=== PATIENT | female | born 1990 | race Hispanic/Latino ===

== ENCOUNTER 2017-02-18 10:38 | Day surgery (SDC) | payer OTHER ==
[2017-02-18] VITALS (10 sets, daily range): BP systolic 106–120; BP diastolic 59–75; PULSE 60–83; RESP 9–16; O2SAT 99–100
[~2017-02-18] VITALS: Ht 160 cm; Wt 73.5 kg
[~2017-02-18 10:38] MED LIST: CLOM50TA PO; Iron; Lactated Ringer's 1,000 ML IV SCH; MULT1CAP33 PO
[2017-02-18] MEDS ORDERED: Rocuronium 10 mg/mL 5 mL Inj ONE (10:39)
[2017-02-18] MEDS ORDERED: Succinylcholine Chloride 20 mg/mL 5 mL Inj ONE (10:39)
[2017-02-18] MEDS ORDERED: Dexamethasone 4 mg/mL Inj ONE (10:39)
[2017-02-18] MEDS ORDERED: fentaNYL-PF 50 mCg/mL 2 mL Inj ONE (10:39)
[2017-02-18] MEDS ORDERED: Ondansetron 2 mg/mL 2 mL Inj ONE (10:39)
[2017-02-18] MEDS ORDERED: Neostigmine 1 mg/mL 10 mL Inj ONE (10:39)
[2017-02-18] MEDS ORDERED: Glycopyrrolate 0.2 MG/ML 1mL Inj ONE (10:39)
[2017-02-18] MEDS ORDERED: Propofol 10,000 mCg/mL 20 mL Inj ONE (10:39)
[2017-02-18] MEDS ORDERED: Lactated Ringer's 1,000 ML IV ONE ×2 (11:19→11:29)
--- NOTE | 2017-02-18 11:29 | PCM.HPANE ---
Patient Data Date of Service: Feb 18, 2017 Surgeon Admitting Provider: Attending Provider:Bhavani Bonilla MD Primary Care Physician:Concepcion Vicente MD Other Provider:Ang Ware Anesthesia Reason for Visit Abnormal Uterine Bleeding Ht/WT & BMI Height (Feet): 5 Height (Inches): 3.00 Weight (Kilograms): 73.480 Body Mass Index 28.00 Allergies Coded Allergies: No Known Allergies (Unverified Allergy, Unknown, 02/17/17) Past Anesthesia History Anesthesia History: Positive for:: Fam Anesthesia Reaction (Mother- rapid heart beat), Denies:: Abnormal Airway, Anesthesia Reactions, Difficult Intubation, Fam Malignant Hypertherm, Malignant Hyperthermia Diabetes History Hx Diabetes?: No MRSA MRSA: No Medications Hypertension Medication: No Home Meds Incl Beta Ashely: No Reported Medications Multivitamin (Multivitamins)1 Each Capsule1 Each PO DAILY 02/12/17 [Iron] No Conflict [id number] Daily 02/12/17 Clomiphene Citrate 50 Mg [id number] Mg PO DAILY 02/12/17 History History of ENT Problems?: No HEENT History: Denies:: Abnormal Airway Cataracts Difficult Intubation Dysphagia Glaucoma Hearing Problem Sinus Problem TMJ Denture Type: None Teeth Condition: Within Normal Limits Hx of Heart Problems?: No Cardiovascular History: Denies:: AICD Abdominal Aortic Aneurism Atrial Fibrillation Cardiac Surgery Chest Pain Congestive Heart Failure Coronary Artery Disease Edema Heart Murmur Hypertension Irregular Heartbeat Pacemaker Peripheral Vascular Rheumatic Fever Thrombophlebitis Valvular Heart Disease Hx of Respiratory Problem?: No Respiratory History: Denies:: Asthma COPD Chest Surgery Cough Dyspnea Emphysema Hemoptysis Oxygen Administration Pneumonia Pulmonary Embolism Tuberculosis Use of C-PAP Machine Use of Inhalers / NEBS Hx Neurologic Problems?: Yes Neurological History: Positive for:: Headaches (occasionally) Denies:: Alzheimer's Disease CVA Dementia Dizziness Multiple Sclerosis Parkinson's Disease Peripheral Neuropathy Seizures TIA Hx of GI Problems?: No Gastrointestinal History: Denies:: Cirrhosis Diverticulitis Gall Bladder Disease Gastroesphageal Reflux Gastrointestinal Bleeding Heartburn Hepatitis Hiatal Hernia Liver Disease Rectal Bleeding Hx of Problems?: No Genitourinary History: Denies:: HX of Hemodialysis Kidney Stones Urinary Tract Infection HX of Peritoneal Dialysis: No Female Hx: Denies:: Currently (NEG upreg) Endometriosis Pelvic Inflammatory Problems with Breasts? Skin History: Denies:: History Skin Disorders? Pressure Ulcers Hx Musculoskeletal Problems?: No Musculoskeletal History: Denies:: Back Injury Degenerative Joint Fibromyalgia Joint Replacement Musculoskeletal Trauma Myasthenia Gravis Osteoarthritis Rheumatoid Arthritis Systemic Lupus Hx of Psycho/Social Problems?: No Psycho Social History: Denies:: Anxiety Bipolar Disorder Hx Depression Suicide Attempt Hx Surgeries?: No Hx Any Other Health Problems?: No Other History: Denies:: Cancer Endocrine Disease Hospitalization Thyroid Disease History Blood Transfusions: Positive for:: Accept Blood Products? Denies:: Blood Transfuse Reaction Blood Transfusions Hx Diabetes: No Hx Alcohol Use: NoHx Substance Use: No Smoking Status: Never Smoker Stop/Bang Treated for Sleep Apnea?: No Do You Have a CPAP Machine?: No S-Snoring: Do You Snore Loudly: No T-Tired: feel tired, fatigued: Yes O-Obsered: Observed not breath: No P-Blood Pressure: treated: No B- Body Mass Index > 35 kg/m2: No N- Neck Large Circumference: No G- Gender Male: No PIERO Risk Assessment: Low Risk, <3 Yes Risk Assessment Category Category 1A: Patient has history of documented sleep apnea, and HAS NOT received any narcotic, sedative or anesthesia administration during this stay. Category 1B: Patient has history of documented sleep apnea, and HAS received any narcotic , sedative or anesthesia administration during this stay Category 2: Patient has SUSPECTED Obstructive Sleep Apnea, and HAS received any narcotic , sedative or anesthesia administration during this stay. Category 3: Patient has SUSPECTED Obstructive Sleep Apnea and HAS NOT received narcotic, sedative or anesthesia administration during this stay. Category 4: Outpatient in Procedural Areas with known sleep apnea or who screen positive for High Risk via the STOP/BANG questionnaire. Exam Exam Vital Signs Vital Signs Date Time Temp Pulse Resp B/P Pulse Ox O2 Delivery O2 Flow Rate FiO2 02/18/17 11:14 36.6 80 14 120/73 99 Room Air General Appearance: Alert, Oriented X3, Cooperative, No Acute Distress HEENT/AIRWAY: MP 2 Lungs: Clear to Auscultation, Normal Air Movement Heart: Exam Unremarkable, Regular Rate/Rhythm, No Murmurs/Rubs/Gallops Meds/Labs/Diagnostics Admission Meds Current Medications Lactated Ringer's (Lr) 1,000 ml @ ud STK-MED ONCE IV Last administered on t 11:19; Start 02/18/17 at 11:19; Stop 02/18/17 at 11:20; Status DC Plan Impression Patient chart reviewed, patient interviewed and anesthestic plan with risks, benefits, and alternatives discussed, and informed consent obtained. NPO per Anesth. Guidelines: Yes ASA Physical Status: ASA1 Normal Healthy Anesthetic Plan: GA Bene/Risks/Altern/Consents: Yes HP Complete Prior to Induction: Yes Félix Magdaleno MD Feb 18, 2017 11:29
[2017-02-18] MEDS ORDERED: Lactated Ringer's 500 ML IV PRN (12:21)
[2017-02-18] MEDS ORDERED: Lactated Ringer's 1,000 ML IV SCH (12:21)
[2017-02-18] MEDS ORDERED: Phenylephrine 10,000 mCg/mL Inj IVPUSH PRN (12:25)
[2017-02-18] MEDS ORDERED: HYDROmorphone 1 mg/mL Inj IVPUSH PRN (12:25)
[2017-02-18] MEDS ORDERED: Ondansetron 2 mg/mL 2 mL Inj IVPUSH PRN (12:25)
[2017-02-18] MEDS ORDERED: Dexamethasone 4 mg/mL Inj IVPUSH PRN (12:25)
[2017-02-18] MEDS ORDERED: MetoCLOpramide 5 mg/mL 2 mL Inj IVPUSH PRN (12:25)
[2017-02-18] MEDS ORDERED: EPHEDrine Sulfate 50 mg/mL Inj IVPUSH PRN (12:25)
[2017-02-18] MEDS ORDERED: fentaNYL-PF 50 mCg/mL 2 mL Inj IVPUSH PRN (12:25)
[2017-02-18] MEDS ORDERED: oxyCODONE-Acetamin 5-325 mg Tablet PO ONE (14:25)
--- NOTE | 2017-02-18 14:29 | PCM.DIOB ---
Obstetrical Disch Instruction Date of Service: Feb 18, 2017 Dates of Hospitalization Date of Hospital Admission Providers Admitting Physician: Primary Care Physician: Concepcion Vicente MD Attending Physician: Bhavani Bonilla MD Discharge Diagnosis Discharge Diagnosis abnormal uterine bleeding endometrial polyps Problems: Diet Discharge Diet: No restrictions Activity Discharge Activity-General: No lifting >15 pounds for 2 weeks, Other (no sex, tampons or douching for 2 weeks ) Dressing and Incisional Care Hygiene: May shower Follow Up Plan Follow-up Provider (F9): Bhavani Bonilla MD Follow-up appointment: Weeks (2 weeks then 6 weeks ) Call your provider for: Fever or Chills, Shortness of breath, Heavy vaginal bleeding, Heavy bleeding, Epigastric pain, Excessive constipation, Vaginal discomfort, Red painful breasts, Other (burning urination) Bhavani Bonilla MD Feb 18, 2017 14:29
[2017-02-18] MEDS ORDERED: MEDR10TA9 PO (14:30)
--- NOTE | 2017-02-18 15:33 | OP ---
[address] [address] OPERATIVE REPORT PATIENT: TRAM WEIR : 1990 MR#: [id number] ADMIT: 02/18/2017 JOB ID: [id number] DATE OF SURGERY: 02/18/2017 PREOPERATIVE DIAGNOSIS(ES): Abnormal uterine bleeding. POSTOPERATIVE DIAGNOSIS(ES): 1. Abnormal uterine bleeding. 2. Endometrial polyps. SURGEON: Bhavani Bonilla M.D. DROP WIRE OPERATOR: Dionne Oneal M.D. Window Assembler was required for retraction. PROCEDURES: 1. Hysteroscopy. 2. Dilation and curettage. 3. MyoSure resection of endometrial polyp. COMPLICATION: None. ANESTHESIA: General. IV FLUIDS: 1800 mL. ESTIMATED BLOOD LOSS: 100 mL. URINE OUTPUT: The bladder was straight cathed prior to the procedure with 50 mL urine output, clear urine. SPECIMEN: Endocervical curettings, endometrial curettings, endometrial polyp. FINDINGS: Examination under anesthesia revealed an anteverted, anteflexed uterus normal in size, approximately six weeks in size. No palpable masses. No adnexal adhesions or masses to palpation. Mobile uterus. Uterus sounded to 8 cm. Multiple uterine polyps noted throughout the uterine cavity, approximately six polyps in total. Both ostia were visualized. Total fluid deficit is approximately 500 mL. INDICATION: This is a 26-year-old zero, para zero with history of abnormal uterine bleeding. Menses is regular since menarche at age 14. Menses was every 3-8 weeks. The bleeding may last from 1-2 weeks. PROCEDURE: After informed consent was obtained, the patient was taken to the operation room. She was placed under general anesthesia. Then, she was placed in dorsal lithotomy position. She was prepped and draped in the usual sterile fashion for pelvic procedure. Examination under anesthesia revealed the findings as mentioned above. Heavy weighted speculum was placed in the posterior vaginal vault. Anterior retractor was placed with good visualization of the cervix. The anterior lip of the cervix was grasped with single-tooth tenaculum. The cervix was serially dilated to accommodate a size 6.25 mm hysteroscope. Uterus was sounded to 8 cm. Then, the hysteroscope was introduced through the cervical os. The uterine cavity was visualized with the findings as mentioned above. Then my MyoSure light device was used to excise the endometrial polyps under direct visualization. The hysteroscope was removed. Then, a curettage was performed with medium-size curette. Systematic curettings for the entire uterine cavity were performed with gritty sensation throughout the entire uterine cavity was obtained. Then the hysteroscope was reintroduced and the pelvic cavity was examined and no evidence of any remaining remnant polyps were noted. Images were obtained for a before and after procedure for the uterine cavity. The hysteroscope was removed. The single-toothed tenaculum was removed. The cervix was hemostatic. Monsel solution was applied to further ensure hemostasis. All instruments were removed from the vagina. All the instrument, needles, sponges counts were correct x2. Bhavani Perez M.D. was present and scrubbed for the entire procedure.
--- NOTE | 2017-02-25 09:31 | PATH ---
SURGICAL PATHOLOGY Attending Physician:Bhavani Bonilla CASE STATUS: Signed Out PATIENT NAME: [facility] PID: [id number] : 1990 DATE COLLECTED:02/18/2017 00:00 SPECIMEN: 1: Cervix, Biopsy 2: Endometrium, Curettage 3: Endometrium, Biopsy CLINICAL HISTORY: ABDOMINAL UTERINE BLEEDING 1). CERVICAL CURETTINGS 2). ENDOMETRIAL CURETTINGS 3). ENDOMETRIAL POLYPS FINAL DIAGNOSIS: 1.CERVICAL CURETTINGS: ENDOCERVICAL TISSUE WITH SQUAMOUS METAPLASIA, NEGATIVE FOR DYSPLASIA AND MALIGNANCY. PROLIFERATIVE ENDOMETRIUM, NEGATIVE FOR HYPERPLASIA, ATYPIA AND NEOPLASIA. 2.ENDOMETRIAL CURETTINGS: ENDOCERVICAL POLYP, NEGATIVE FOR DYSPLASIA AND MALIGNANCY. PROLIFERATIVE ENDOMETRIUM, NEGATIVE FOR HYPERPLASIA, ATYPIA AND NEOPLASIA. 3.ENDOMETRIAL POLYPS: MULTIPLE FRAGMENTS OF ENDOMETRIAL POLYPS. NEGATIVE FOR HYPERPLASIA, ATYPIA AND NEOPLASIA. ICD10 N84.0 N84.1 GROSS DESCRIPTION: 1. In a container labeled "cervical curettings", the specimen consists of approximately a 0.25 cc aggregate of tissue, mucoid material, and blood, which is entirely submitted in cassette 1A. 2. In a container labeled "endocervical curettage", the specimen consists of approximately a 7 cc aggregate of tissue, mucoid material, and blood, which is filtered and entirely submitted in cassettes 2A, 2B, 2C, 2D, and 2E. 3. In a container labeled "endometrial polyps", the specimen consists of approximately a 2 cc aggregate of tissue and mucoid material, which is filtered, wrapped, and entirely submitted in cassette 3A. (DC:[id number]) MICRO DESCRIPTION: See diagnosis. ICD-9 CODES: CPT CODES: 1: 90900 2: 35744 3: 24604 Electronically Signed Out Whitney Geronimo MD [facility] [address], [place] [address] Technical component performed at [facility], [address], [place], [address]
== END 2017-02-18 23:59 | disposition home or self-care (01) ==
LOC: SAS 10:38
PROVIDERS: ATTEND Obstetrics & Gynecology
PROC: 0UDB8ZX Extraction of Endometrium, Via Natural or Artificial Opening Endoscopic, Diagnostic (ICD-10-PCS; 2017-02-18)
PROC: 0UB98ZZ Excision of Uterus, Via Natural or Artificial Opening Endoscopic (ICD-10-PCS; principal; 2017-02-18 12:15)
DX: N93.9 Abnormal uterine and vaginal bleeding, unspecified (principal); N84.0 Polyp of corpus uteri; Z80.49 Family history of malignant neoplasm of other genital organs
CPT/HCPCS: 58558; 88305; J0330; J1100; J1170; J1885; J2405; J2710; J3010; J7120

== ENCOUNTER → 2017-03-11 | Day surgery (SDC) | payer OTHER ==
[2017-03-11] VITALS (11 sets, daily range): BP systolic 110–128; BP diastolic 56–76; PULSE 64–85; RESP 12–20; O2SAT 98–100
[~2017-03-11] VITALS: Ht 160 cm; Wt 73.0 kg
[~2017-03-11] MED LIST changes: +Atropine 0.4 mg/mL Inj IVPUSH PRN; +CeFAZolin 2 Gm/50 mL D5W Duplex Bag IV ONE; +CeFAZolin 2 Gm/50 mL D5W IV Premix IV ONE; +Dexamethasone 4 mg/mL Inj IVPUSH PRN; +Dexamethasone 4 mg/mL Inj ONE; +EPHEDrine Sulfate 50 mg/mL Inj IVPUSH PRN; +EPHEDrine/NS 5 mg/mL 5 mL Syringe ONE; +HYDROmorphone 1 mg/mL Inj IM PRN; +HYDROmorphone 1 mg/mL Inj IVPUSH PRN; +IBUP-1827 PO; +Labetalol 5 mg/mL 4 mL Inj IV PRN; +METF500T4 PO; +MetoCLOpramide 5 mg/mL 2 mL Inj IVPUSH PRN; +MetoCLOpramide 5 mg/mL 2 mL Inj ONE; +OXYC1TAB24 PO; +Ondansetron 2 mg/mL 2 mL Inj IVPUSH PRN; +PHENYLEPHRINE ONE; +PREN-107 PO; +Phenylephrine 10,000 mCg/mL Inj IVPUSH PRN; +Propofol 10,000 mCg/mL 20 mL Inj ONE; +SULF1TAB35 PO; +diphenhydrAMINE 25 mg Capsule PO PRN; +fentaNYL-PF 50 mCg/mL 2 mL Inj IVPUSH PRN; +fentaNYL-PF 50 mCg/mL 2 mL Inj ONE; +hydrALAZINE 20 mg/mL Inj IVPUSH PRN; +oxyCODONE-Acetamin 5-325 mg Tablet PO PRN
[2017-03-11] MEDS: Lactated Ringer's 1,000 ML IV SCH ×2 (12:59→16:19)
--- NOTE | 2017-03-11 16:09 | PCM.HPANE ---
Patient Data Date of Service: Mar 11, 2017 Surgeon Admitting Provider: Attending Provider:Bhavani Bonilla MD Primary Care Physician:Nopbarry Other Provider:Ang Ware Anesthesia Reason for Visit Recurrent Bartholin Cyst Ht/WT & BMI Height (Feet): 5 Height (Inches): 3.00 Weight (Kilograms): 73.000 Body Mass Index 28.00 Allergies Coded Allergies: No Known Allergies (Verified Allergy, Unknown, 03/05/17) Past Anesthesia History Anesthesia History: Positive for:: Fam Anesthesia Reaction (Mother- rapid heart beat), Denies:: Abnormal Airway, Anesthesia Reactions, Difficult Intubation, Fam Malignant Hypertherm, Malignant Hyperthermia Diabetes History Hx Diabetes?: No MRSA MRSA: No Medications Hypertension Medication: No Home Meds Incl Beta Ashely: No Reported Medications Metformin 500 Mg [id number] Mg PO BID Ref 0 03/05/17 Vit37/Iron/Folic Acid ([place] Chewable Tablet)1 Each Tab.chew1 Each PO 03/05/17 Multivitamin (Multivitamins)1 Each Capsule1 Each PO DAILY 02/12/17 [Iron] No Conflict [id number] Daily 02/12/17 Clomiphene Citrate 50 Mg [id number] Mg PO DAILY 02/12/17 Discontinued Reported Medications Clomiphene Citrate 50 Mg Fnoltk99 Mg PO 03/05/17 Discontinued Scripts Medroxyprogesterone 10 Mg Endebh09 Mg PO DAILY PRN heavy bleeding #10 TABLET Ref 0 Prov:Bhavani Bonilla MD 02/18/17 History History of ENT Problems?: No HEENT History: Denies:: Abnormal Airway Cataracts Difficult Intubation Dysphagia Glaucoma Hearing Problem Sinus Problem TMJ Denture Type: None Teeth Condition: Within Normal Limits Hx of Heart Problems?: No Cardiovascular History: Denies:: AICD Abdominal Aortic Aneurism Atrial Fibrillation Cardiac Surgery Chest Pain Congestive Heart Failure Coronary Artery Disease Edema Heart Murmur Hypertension Irregular Heartbeat Pacemaker Peripheral Vascular Rheumatic Fever Thrombophlebitis Valvular Heart Disease Hx of Respiratory Problem?: No Respiratory History: Denies:: Asthma COPD Chest Surgery Cough Dyspnea Emphysema Hemoptysis Oxygen Administration Pneumonia Pulmonary Embolism Tuberculosis Use of C-PAP Machine Hx Neurologic Problems?: Yes Neurological History: Positive for:: Headaches (occasionally) Denies:: Alzheimer's Disease CVA Dementia Dizziness Multiple Sclerosis Parkinson's Disease Seizures TIA Hx of GI Problems?: No Hx of Problems?: No Genitourinary History: Denies:: HX of Hemodialysis Kidney Stones Urinary Tract Infection HX of Peritoneal Dialysis: No Female Hx: Denies:: Currently Endometriosis Pelvic Inflammatory Problems with Breasts? Skin History: Denies:: History Skin Disorders? Pressure Ulcers Hx Musculoskeletal Problems?: No Musculoskeletal History: Denies:: Back Injury Degenerative Joint Fibromyalgia Joint Replacement Musculoskeletal Trauma Myasthenia Gravis Osteoarthritis Rheumatoid Arthritis Systemic Lupus Hx of Psycho/Social Problems?: No Psycho Social History: Denies:: Anxiety Bipolar Disorder Hx Depression Suicide Attempt Hx Surgeries?: No Hx Any Other Health Problems?: Yes Other History: Denies:: Cancer Endocrine Disease Hospitalization Thyroid Disease History Blood Transfusions: Positive for:: Accept Blood Products? Denies:: Blood Transfuse Reaction Blood Transfusions Hx Diabetes: No Hx Alcohol Use: NoHx Substance Use: No Smoking Status: Never Smoker Have You Smoked inLast 12 mo: No Stop/Bang Treated for Sleep Apnea?: No Do You Have a CPAP Machine?: No S-Snoring: Do You Snore Loudly: No T-Tired: feel tired, fatigued: No O-Obsered: Observed not breath: No P-Blood Pressure: treated: No B- Body Mass Index > 35 kg/m2: No A- Age over 50: No N- Neck Large Circumference: No G- Gender Male: No PIERO Total Score: 0 PIERO Risk Assessment: Low Risk, <3 Yes Risk Assessment Category Category 1A: Patient has history of documented sleep apnea, and HAS NOT received any narcotic, sedative or anesthesia administration during this stay. Category 1B: Patient has history of documented sleep apnea, and HAS received any narcotic , sedative or anesthesia administration during this stay Category 2: Patient has SUSPECTED Obstructive Sleep Apnea, and HAS received any narcotic , sedative or anesthesia administration during this stay. Category 3: Patient has SUSPECTED Obstructive Sleep Apnea and HAS NOT received narcotic, sedative or anesthesia administration during this stay. Category 4: Outpatient in Procedural Areas with known sleep apnea or who screen positive for High Risk via the STOP/BANG questionnaire. Exam Exam Vital Signs Vital Signs Date Time Temp Pulse Resp B/P Pulse Ox O2 Delivery O2 Flow Rate FiO2 03/11/17 13:00 36.4 64 16 110/56 98 Room Air General Appearance: Alert, Oriented X3, Cooperative HEENT/AIRWAY: MP 2, Neck Movement, Mouth Opening Lungs: Clear to Auscultation, Normal Air Movement Heart: Regular Rate/Rhythm, Normal S1, Normal S2 Meds/Labs/Diagnostics Admission Meds Current Medications Lactated Ringer's (Lr) 1,000 ml @ 120 mls/hr [id number] IV Last administered on t 12:59; Start 03/11/17 at 05:00; Stop 03/11/17 at 13:19; Status DC Plan Impression Patient chart reviewed, patient interviewed and anesthestic plan with risks, benefits, and alternatives discussed, and informed consent obtained. NPO per Anesth. Guidelines: Yes ASA Physical Status: ASA1 Normal Healthy Anesthetic Plan: GA Bene/Risks/Altern/Consents: Yes HP Complete Prior to Induction: Yes Cleveland Doll MD Mar 11, 2017 14:13
--- NOTE | 2017-03-11 17:38 | PCM.DIGYN ---
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 Ok for washing the labia and perineal area with soap and water two times daily. ) Dressing and Incisional Care Hygiene: May shower Follow Up Plan Follow-up Provider (F9): Bhavani Bonilla MD Follow-up appointment: Weeks (two to three ) Call your provider for: Fever, Chills, Shortness of breath, Vomitting, Drainage at incision, Heavy vaginal bleeding, Wound redness, Increasing pain Bhavani Bonilla MD Mar 11, 2017 17:38
[2017-03-11] MEDS: Lactated Ringer's 500 ML IV PRN ×2 (17:45→18:00)
--- NOTE | 2017-03-11 18:15 | PCM.ANEP1 ---
Post Anesthesia PACU Phase 1 Assessment Date of Service: Mar 11, 2017 Vital Signs Vital Signs Date Time Temp Pulse Resp B/P Pulse Ox O2 Delivery O2 Flow Rate FiO2 03/11/17 18:00 36.2 73 13 126/65 100 Room Air 03/11/17 17:55 36.2 80 13 120/71 100 Room Air 03/11/17 17:50 80 20 116/76 99 Room Air 03/11/17 17:45 74 13 115/70 99 Room Air 03/11/17 17:40 82 12 118/65 99 Room Air 03/11/17 17:35 70 12 114/66 99 Room Air 03/11/17 17:30 64 16 116/67 100 Simple Mask 8 03/11/17 17:25 70 14 118/69 100 Simple Mask 8 03/11/17 17:20 36.6 70 12 128/68 100 Simple Mask 8 03/11/17 13:00 36.4 64 16 110/56 98 Room Air Anesthetic Administered: GA Level of Alertness: Awake, talking LEBLANC's with Equal Strength: Yes Pain: No Nausea or Vomiting: No CV Function & Hydration Stable: Yes Airway Device: Oxygen Delivery: Simple Mask Lungs: Clear to Auscultation, Normal Air Movement PACU Phase 2 Assessment Complications: No Follow up Care: N/A Patient Instructions Provided: N/A Cleveland Doll MD Mar 11, 2017 18:15
--- NOTE | 2017-03-12 09:35 | OP ---
[address] [address] OPERATIVE REPORT PATIENT: ANIL WEIR : 1990 MR#: [id number] ADMIT: 03/11/2017 JOB ID: [id number] DATE OF SURGERY: 03/11/2017 PREOPERATIVE DIAGNOSIS(ES): Recurrent right Bartholin cyst. POSTOPERATIVE DIAGNOSIS(ES): Recurrent right Bartholin cyst. PROCEDURE: Marsupialization of right Bartholin cyst. SURGEON: Bhavani Bonilla MD. CLINICAL DIETICIAN: Dionne Oneal MD. COMPLICATIONS: None. SPECIMENS: None. ESTIMATED BLOOD LOSS: 5 mL. ANESTHESIA: General. FINDINGS: A 4 x4 cm right Bartholin cyst with yellow thick intracystic fluid. DESCRIPTION OF PROCEDURE: After informed consent was obtained patient was taken to the operation room. She was placed under general anesthesia. Then, she was prepped and draped in the usual sterile fashion for pelvic procedure. The Bartholin cyst was identified. Then, a 2 cm incision was made at the vestibule over the cyst using a size 11 blade. The edge of the Bartholin cyst was grasped and an elliptical shaped tissue was excised from the roof of the Bartholin cyst. Loculation was broken with a hemostat, draining yellow thick discharge. Then, using 2-0 Vicryl suture material, several interrupted stitches were placed creating a fenestration at the center of the cyst. The cavity was irrigated. Hemostasis was ensured. Local anesthesia was injected, 1% lidocaine for postop pain management. The patient tolerated the procedure well and was transferred to the recovery room in stable condition. IBhavani MD, was present and scrubbed for the entire procedure. the office in two weeks.
== END | disposition home or self-care (01) ==
LOC: SAS 11:37
PROVIDERS: ATTEND Obstetrics & Gynecology
DX: N75.0 Cyst of Bartholin's gland (principal)
CPT/HCPCS: 56440; 87070; 87075; 87205; J0690; J1100; J2250; J2370; J2765; J3010; J7120